=== PATIENT | male | born 2000 | race Caucasian/White ===

== ENCOUNTER 2022-08-12 22:43 | Emergency (ER) | payer BC ==
[2022-08-12] MEDS ORDERED: Sodium Chloride 0.9% 10 ML Syringe FLUSH PRN (22:49)
[2022-08-12] MEDS ORDERED: Sodium Chloride 0.9% 1,000 ML IV ONE (22:49)
[2022-08-12] MEDS ORDERED: Ondansetron 4 MG/2 ML SDV IVPUSH ONE (22:49)
[2022-08-12] MEDS ORDERED: Sodium Chloride 0.9% 2.5 ML Syringe FLUSH PRN (22:49)
[2022-08-12 23:35] LABS: CARBON DIOXIDE,CO2 24.2 mmol/L (21.0-32.0); POTASSIUM,K 3.2 mmol/L (3.5-5.1)
[2022-08-13] MEDS ORDERED: Sodium Chloride 0.9% 1,000 ML IV ONE (00:41)
== END 2022-08-13 01:55 | disposition home or self-care (01) ==
LOC: MW.ED 22:43
DX: F10.129 Alcohol abuse with intoxication, unspecified (principal); Y90.8 Blood alcohol level of 240 mg/100 ml or more
CPT/HCPCS: 36415; 80053; 80307; 85025; 96361; 96374; 99284; J2405; J3490; J7030

== ENCOUNTER 2023-03-21 09:21 | Day surgery (SDC) | payer BC ==
[~2023-03-21 09:21] MED LIST: Lactated Ringers 1,000 ML IV SCH
[2023-03-21] MEDS ORDERED: Ondansetron 4 MG/2 ML SDV IVPUSH ONE (09:22)
[2023-03-21] MEDS ORDERED: Ketorolac 30 MG/ML SDV IVPUSH ONE (09:22)
[2023-03-21] MEDS ORDERED: Dexamethasone 4 MG/ML SDV IV ONE (09:22)
[2023-03-21] MEDS ORDERED: Sugammadex Sodium 200 MG/2 ML VIAL IV ONE (09:22)
[2023-03-21] MEDS ORDERED: Bupivacaine 0.5% 30 ML SDV ONE (09:58)
[2023-03-21] MEDS ORDERED: ceFAZolin 1 GM Vial ONE (09:58)
[2023-03-21] MEDS ORDERED: Propofol 200 MG/20 ML SDV ONE (10:05)
[2023-03-21] MEDS ORDERED: fentaNYL 250 MCG/5 ML SDV ONE (10:05)
[2023-03-21] MEDS ORDERED: Acetaminophen/HYDROcodone 325-5 MG Tab PO PRN (11:03)
[2023-03-21] MEDS ORDERED: Morphine 4 MG/ML Syringe IVPUSH PRN (11:03)
[2023-03-21] MEDS ORDERED: Lactated Ringers 1,000 ML IV SCH (11:15)
== END 2023-03-21 12:04 | disposition home or self-care (01) ==
LOC: MW.SDS 09:21
PROVIDERS: ATTEND Surgery
DX: L05.01 Pilonidal cyst with abscess (principal); F41.9 Anxiety disorder, unspecified; F17.290 Nicotine dependence, other tobacco product, uncomplicated; Z79.899 Other long term (current) drug therapy
CPT/HCPCS: 11770; 87070; 87075; 87205; J0690; J2704; J3010; J3490; J7120; J1100; J1885; J2405